=== PATIENT | male | born 1960 | race African-American/Black ===

== ENCOUNTER 2016-07-14 18:16 | Emergency (ER) | payer SELFPAY ==
[2016-07-14 18:21] VITALS: BP 183/102
--- NOTE | 2016-07-14 19:22 | ER Document Report ---
ED General - General Chief Complaint: Headache Stated Complaint: BLOOD PRESSURE PROBLEM Time Seen by Provider: 07/14/16 19:03 Mode of Arrival: Ambulatory Information source: Patient, Relative Notes: 56-year-old male presents with 3 separate complaints. Patient's first complaint is a tick bite to the right antecubital, notes no rash associated with it no fevers. Patient's second complaint is a headache which has been ongoing for 5 days but resolved on its own yesterday. Patient notes today he has no headache. Patient still complains high blood pressure. Patient notes he is supposed to take his medication which isibsartan / hctz with a new script for norvasc 10 mg daily which he recieved last month for uncontrolled htn but never filled. TRAVEL OUTSIDE OF THE [place] IN LAST 30 DAYS: No - HPI Onset: Other Onset/Duration: Gone Quality of pain: No pain Severity: None Pain Level: Denies Associated symptoms: None Exacerbated by: Denies Relieved by: Denies Similar symptoms previously: Yes Recently seen / treated by doctor: Yes - Related Data Allergies/Adverse Reactions: No Known Allergies Allergy (Verified 07/14/16 18:19) Past Medical History - Social History Smoking Status: Current Every Day Smoker Cigarette use (# per day): Yes Chew tobacco use (# tins/day): No Smoking Education Provided: No Frequency of alcohol use: Occasional Drug Abuse: None Family History: Reviewed & Not Pertinent Patient has suicidal ideation: No Patient has homicidal ideation: No - Past Medical History Cardiac Medical History: Reports: Hx Hypertension Renal/ Medical History: Denies: Hx Peritoneal Dialysis Surgical Hx: Negative - Immunizations Hx Diphtheria, Pertussis, Tetanus Vaccination: No Review of Systems - Review of Systems Notes: PHYSICAL EXAMINATION: GENERAL: Well-appearing, well-nourished and in no acute distress. HEAD: Atraumatic, normocephalic. EYES: Pupils equal round and reactive to light, extraocular movements intact, sclera anicteric, conjunctiva are normal. ENT: Nares patent, oropharynx clear without exudates. Moist mucous membranes. NECK: Normal range of motion, supple without lymphadenopathy LUNGS: Breath sounds clear to auscultation bilaterally and equal. No wheezes rales or rhonchi. HEART: Regular rate and rhythm without murmurs ABDOMEN: Soft, nontender, nondistended abdomen. No guarding, no rebound. No masses appreciated. Musculoskeletal: Normal range of motion, no pitting or edema. No cyanosis. NEUROLOGICAL: Cranial nerves grossly intact. Normal speech, normal gait. Normal sensory, motor exams PSYCH: Normal mood, normal affect. SKIN: Scabbed noted over right antecubital no secondary sign of infection no rash Physical Exam - Vital signs Vitals: Temp Pulse Resp BP Pulse Ox 99.0 F 84 18 183/102 H 100 07/14/16 18:19 07/14/16 18:19 07/14/16 18:19 07/14/16 18:19 07/14/16 18:19 Course - Re-evaluation Re-evalutation: 07/14/16 19:26 lyme titer has been ordered, given the patient's headache is completely resolving do not believe any intervention is appropriate or imaging. I did rewrite the patient's Norvasc prescription will have her follow-up with his primary care physician for reevaluation. Patient is very happy with this plan and wishes to be discharged After performing a Medical Screening Examination, I estimate there is LOW risk for ACUTE GLAUCOMA, TEMPORAL ARTERITIS, MENINGITIS, INCRANIAL HEMORRHAGE, or ISCHEMIC STROKE thus I consider the discharge disposition reasonable. I have reevaluated this patient multiple times and no significant life threatening changes are noted. The patient and I have discussed the diagnosis and risks, and we agree with discharging home with close follow-up with the understanding that symptoms and presentations can change. We also discussed returning to the Emergency Department immediately if new or worsening symptoms occur. We have discussed the symptoms which are most concerning (e.g., changing or worsening symptoms, new numbness or weakness, vomiting, fever) that necessitate immediate return. - Vital Signs Vital signs: Temp Pulse Resp BP Pulse Ox 99.0 F 84 18 183/102 H 100 07/14/16 18:19 07/14/16 18:19 07/14/16 18:19 07/14/16 18:19 07/14/16 18:19 Discharge - Discharge Clinical Impression: Headache Qualifiers: Headache type: unspecified Headache chronicity pattern: acute headache Intractability: not intractable Qualified Code(s): R51 - Headache Hypertension Qualifiers: Hypertension type: essential hypertension Qualified Code(s): I10 - Essential ( primary) hypertension Tick bite Qualifiers: Encounter type: initial encounter Qualified Code(s): W57.XXXA - Bitten or stung by nonvenomous insect and other nonvenomous arthropods, initial encounter Condition: Stable Disposition: HOME, SELF-CARE Instructions: Headache ([facility]) Additional Instructions: Headache The physician does not feel that the headache you are experiencing has a serious underlying cause. Most headaches are due to emotional stress, with resultant muscle tension (tension headache). Occasionally, headaches are secondary to changes in the blood vessels of the scalp (vascular headache and migraine headache). Sometimes, a headache is the first symptom of another developing illness, such as a viral infection. You have no evidence of stroke, bleeding, meningitis, or other serious cause of your headache. The treatment of headaches varies with the severity and cause of the pain. Not all headaches need pain shots. In fact, there is evidence that using narcotics for headaches may make them worse in the long run. The physician will determine the therapy that's in your best interest. If you develop a fever, if the headache is different from any you've previously experienced, or if the headache progressively worsens, then call your physician at once or go to the emergency room. Prescriptions: Amlodipine Besylate [Norvasc 10 mg Tablet] 10 mg PO DAILY #30 tablet
[2016-07-14] MEDS ORDERED: AMLODIPINE BESYLATE 10 MG TABLET PO ONE (19:23)
[2016-07-19 08:29] LABS: LYME DISEASE IGG AND IGM AB <0.91 ISR (0.00-0.90)
== END 2016-07-14 21:44 | disposition home or self-care (01) ==
LOC: ER 18:16
DX: R51 Headache (principal); I10 Essential (primary) hypertension; Z79.899 Other long term (current) drug therapy; F17.210 Nicotine dependence, cigarettes, uncomplicated; W57.XXXA Bitten or stung by nonvenomous insect and other nonvenomous arthropods, initial encounter
CPT/HCPCS: 36415; 86617; 86618; 99284

== ENCOUNTER 2017-04-20 09:48 | Emergency (ER) | payer SELFPAY ==
[2017-04-20 11:12] VITALS: BP 156/98
--- NOTE | 2017-04-20 11:13 | ER Document Report ---
ED Medical Screen (RME) - General Chief Complaint: High Blood Pressure Stated Complaint: BLOOD PRESSURE ISSUES Time Seen by Provider: 04/20/17 11:07 Mode of Arrival: Ambulatory Information source: Patient TRAVEL OUTSIDE OF THE [place] IN LAST 30 DAYS: No - HPI Onset: Other - 2 WEEKS Context: Patient states he had a flulike illness with fever about 2 weeks ago. He had some headache with that but headache is now resolved. He did have some chest congestion for short time. That, too, has now resolved. He denies any particular complaint at the present time. He does have chronic hypertension, is mildly hypertensive at time of exam, but he had recently taken his blood pressure meds only a short time before. Review of systems is essentially negative. - Related Data Allergies/Adverse Reactions: No Known Allergies Allergy (Verified 04/20/17 09:50) Past Medical History - General Information source: Patient - Past Medical History Cardiac Medical History: Reports: Hx Hypertension Neurological Medical History: Reports: Hx Cerebrovascular Accident Renal/ Medical History: Denies: Hx Peritoneal Dialysis - Immunizations Hx Diphtheria, Pertussis, Tetanus Vaccination: No Review of Systems - Review of Systems Constitutional: See HPI EENT: No symptoms reported Cardiovascular: No symptoms reported Respiratory: No symptoms reported Gastrointestinal: No symptoms reported Genitourinary: No symptoms reported Musculoskeletal: No symptoms reported Skin: No symptoms reported Neurological/Psychological: See HPI Physical Exam - Vital signs Vitals: Temp Pulse Resp BP Pulse Ox 98.4 F 79 20 141/93 H 98 04/20/17 10:11 04/20/17 10:11 04/20/17 10:11 04/20/17 10:11 04/20/17 10:11 Interpretation: Hypertensive - General General appearance: Appears well, Alert In distress: None - HEENT Head: Normocephalic Eyes: Normal Conjunctiva: Normal Ears: Normal Nasal: Normal Mouth/Lips: Normal Mucous membranes: Normal Pharynx: Normal Neck: Normal, Supple - Respiratory Respiratory status: No respiratory distress Breath sounds: Normal - Cardiovascular Rhythm: Regular Heart sounds: Normal auscultation Murmur: No - Abdominal Inspection: Normal Distension: No distension - Extremities General upper extremity: Normal inspection General lower extremity: Normal inspection. No: Tender, Edema - Neurological Neuro grossly intact: Yes - SLIGHT APHASIA, CHRONIC, RESIDUAL FROM CVA Cognition: Normal Orientation: AAOx4 - Psychological Associated symptoms: Normal affect, Normal mood - Skin Skin Temperature: Warm Skin Moisture: Dry Skin Color: Normal Skin Turgor: Elastic Course - Vital Signs Vital signs: Temp Pulse Resp BP Pulse Ox 98.4 F 79 20 141/93 H 98 04/20/17 10:11 04/20/17 10:11 04/20/17 10:11 04/20/17 10:11 04/20/17 10:11 Doctor's Discharge - Discharge Clinical Impression: Viral illness, Hypertension, essential Condition: Stable Disposition: HOME, SELF-CARE Instructions: Viral Syndrome ([facility]), High Blood Pressure ([facility]) Additional Instructions: REST, DRINK PLENTY OF FLUIDS. CONTINUE YOUR BLOOD PRESSURE MED USUAL. FOLLOW UP WITH YOUR PRIMARY CARE PROVIDER.
== END 2017-04-20 11:20 | disposition home or self-care (01) ==
LOC: ER 09:48
DX: B34.9 Viral infection, unspecified (principal); I10 Essential (primary) hypertension; R50.9 Fever, unspecified; R51 Headache; R09.89 Other specified symptoms and signs involving the circulatory and respiratory systems
CPT/HCPCS: 99283

== ENCOUNTER → 2017-07-12 | Outpatient (CLI) | payer OTHER ==
[2017-07-12 11:46] LABS: BLOOD UREA NITROGEN 20 mg/dL (7-20); TRIGLYCERIDES 82 mg/dL (<150)
[2017-07-12 11:57] LABS: DIRECT LDL 41 mg/dL (<100)
== END ==
LOC: CCC 09:00
DX: I10 Essential (primary) hypertension (principal); Z86.73 Personal history of transient ischemic attack (TIA), and cerebral infarction without residual deficits
CPT/HCPCS: 36415; 80061; 82565; 84520